=== PATIENT | female | born 1975 | race Caucasian/White ===

== ENCOUNTER 2020-07-20 19:28 | Emergency (ER) | payer MEDICAID ==
[~2020-07-20] VITALS: Ht 175.3 cm; Wt 68.1 kg
[2020-07-20 22:56] VITALS: BP 135/62
--- NOTE | 2020-07-21 21:20 | NUR ---
PER NIKHIL HARRIS, THE RADIOLOGIST REVIEWED THE FILM AND DX A NON-DISPLACED RIB FRACTURE. THIS DOES NOT CHANGE THE TREATMENT PLAN AND THERE IS NO NEED TO CONTACT THE PATIENT.
== END 2020-07-20 22:58 | disposition home or self-care (01) ==
LOC: ER 19:29
DX: R07.81 Pleurodynia (principal); Z59.0 Homelessness; Z88.1 Allergy status to other antibiotic agents; Z88.0 Allergy status to penicillin
CPT/HCPCS: 71101; 99284

== ENCOUNTER 2021-08-10 07:51 | Emergency (ER) | payer MEDICAID ==
[~2021-08-10] VITALS: Ht 175.3 cm; Wt 75.0 kg
[2021-08-10 08:05] VITALS: BP 106/48
[2021-08-10] MEDS ORDERED: ondansetron 4mg rapidly disintigrating tab PO ONE (08:35)
[2021-08-10] MEDS ORDERED: azithromycin 250mg tablet PO ONE (08:35)
== END 2021-08-10 09:29 | disposition home or self-care (01) ==
LOC: ER 07:52
DX: L23.7 Allergic contact dermatitis due to plants, except food (principal); R21 Rash and other nonspecific skin eruption; Z59.00 Homelessness unspecified; Z88.0 Allergy status to penicillin; Z88.1 Allergy status to other antibiotic agents; Z88.8 Allergy status to other drugs, medicaments and biological substances
CPT/HCPCS: 36415; 86592; 99283

== ENCOUNTER 2022-05-14 19:38 | Emergency (ER) | payer MEDICAID ==
[~2022-05-14] VITALS: Ht 175.3 cm; Wt 69.2 kg
[2022-05-14] MEDS ORDERED: sulfamethoxazole/trimethoprim DS (800/160mg) tablet PO ONE (21:35)
[2022-05-14] MEDS ORDERED: diphenhydrAMINE 25mg capsule PO ONE (21:35)
[2022-05-14] MEDS ORDERED: SULF1TAB45 PO (21:44)
[2022-05-14] MEDS ORDERED: DIPH25CA83 PO (21:44)
[2022-05-14 21:48] VITALS: BP 122/77
== END 2022-05-14 21:53 | disposition home or self-care (01) ==
LOC: ER 19:39
DX: L98.8 Other specified disorders of the skin and subcutaneous tissue (principal); G89.29 Other chronic pain; F17.200 Nicotine dependence, unspecified, uncomplicated; Z59.00 Homelessness unspecified; Z88.0 Allergy status to penicillin; Z88.1 Allergy status to other antibiotic agents; Z79.2 Long term (current) use of antibiotics
CPT/HCPCS: 99283; Q0163

== ENCOUNTER 2022-12-29 01:37 | Emergency (ER) | payer MEDICAID ==
[~2022-12-29] VITALS: Ht 170.2 cm; Wt 70.0 kg
[~2022-12-29 01:37] MED LIST: DIPH25CA83 PO
[2022-12-29 01:38] VITALS: BP 173/84; PULSE 80; RESP 18; TEMP 97.6; O2SAT 98
--- NOTE | 2022-12-29 01:46 | NUR ---
she hollared at staff, including "I will not answer your fucking questions twice"
== END 2022-12-29 01:46 | disposition home or self-care (01) ==
LOC: ER 01:37
DX: F15.90 Other stimulant use, unspecified, uncomplicated (principal); R05.9 Cough, unspecified; Z88.0 Allergy status to penicillin; Z88.1 Allergy status to other antibiotic agents; Z79.899 Other long term (current) drug therapy
CPT/HCPCS: 99283

== ENCOUNTER 2024-10-13 22:11 | Emergency (ER) | payer SELFPAY ==
[~2024-10-13] VITALS: Ht 182.9 cm; Wt 57.8 kg
[2024-10-13 22:17] VITALS: BP 119/77; PULSE 115; RESP 15; O2SAT 96
--- NOTE | 2024-10-13 22:53 | Physician Documentation ---
History of Present Illness ~ Chief Complaint: Abscess Stated Complaint: WOUNDS Time Seen by MD: 22:44 Primary Medical Doctor: none HPI 49-year-old female presents to the ED with a complaint of sores on her upper extremities and lower extremities that are itchy and painful. States there worse worse during the day. So she has also gotten vaginal discharge.. Reports being homeless Tetanus Within 5 Years: No Medication Reconciliation Allergies: Coded Allergies: Penicillins (Verified Allergy, Unknown, 10/13/24) >5 years, unknown reaction, unknown treatment cephalexin (Verified Allergy, Unknown, 10/13/24) levofloxacin (Verified Allergy, Unknown, 10/13/24) Scheduled PRN Diphenhydramine HCl (Benadryl), 2 CAP PO Q8H PRN for sinus congestion Past Medical History Past Medical History: Chronic Pain Past Surgical History: noncontributory Drug Use: none Lives In: Homeless Review of Systems All Other Systems at this time: Reviewed and Negative ROS As stated above in the HPI, otherwise all systems are reviewed and negative. Physical Exam Vital Signs: Heart Rate: 115, Respiratory Rate: 15, BP: 119/77, Pulse Oximetry: 96, Weight: 57.800 Physical Exam General: Alert, no apparent distress. HEENT: PERRL, EOMI, no injection, moist mucous membranes. Gu: Deferred Skin: Normal color, sores on both upper extremities and lower extremities with poor healing scabs surrounding erythema Progress Results/Orders Results/Orders Completed Orders - RUSSELL LOPEZ NP Ceftriaxone Im Kit W/Lidocaine (Rocephin (10/13/24 22:55) Doxycycline 100mg Capsule (Vibramycin 10 (10/13/24 22:53) Medications Received in ER Medications (Trade) Dose Ordered Sig/Caridad Route PRN Reason Start Time Stop Time Status Last Admin Dose Admin (Rocephin 1GM IM kit (w/lidocaine diluent)) 1,000 mg ONCE ONCE IM 10/13/24 22:55 10/13/24 22:56 DC 10/13/24 23:11 1,000 MG (VIBRAMYCIN 100mg capsule) 100 mg ONCE STAT PO 10/13/24 22:53 10/13/24 22:55 DC 10/13/24 23:11 100 MG Vital Signs 10/13/24 22:17 Pulse 115 Resp 15 B/P (MAP) 119/77 Pulse Ox 96 Medical Decision Making Findings This unfortunate female presents with a multitude of complaints including parasites which I suspect are a combination of likely staff and picking sores from methamphetamine abuse. Also going to treat her empirically for STI Differential Dx:Considerations: Include: Abscess, Bacteremia, Cellulitis, Erysipelas, Felon, Gas gangrene, Hidrademitis suppurativa, Impetigo, Lymphangitis, Osteromyelitis, Paronychia, Septicemia, Other Departure Disposition: HOME / SELF CARE / HOMELESS Impression: Primary Impression: Abscess Additional Impressions: Cellulitis Sexually transmissible disease Condition: Stable Discharge Instructions: Abscess, Care After Referrals: NO PRIMARY CARE PROVIDER (PCP) Signature Scribe Signature: g Attestation: Scribed for Russell Lopez Cork Compounder by Russell Lopez - BIJAN . 10/13/24 23:48 RUSSELL LOPEZ NP Oct 13, 2024 22:53
[2024-10-13] MEDS: DOXYCYCLINE 100MG CAPSULE PO STA (23:11)
[2024-10-13] MEDS: CefTRIAXone 1000mg IM Kit (w/lidocaine diluent) IM ONE (23:11)
== END 2024-10-13 23:15 | disposition home or self-care (01) ==
LOC: ER 22:12
DX: L02.416 Cutaneous abscess of left lower limb (principal); L02.415 Cutaneous abscess of right lower limb; L02.414 Cutaneous abscess of left upper limb; L02.413 Cutaneous abscess of right upper limb; L03.116 Cellulitis of left lower limb; L03.115 Cellulitis of right lower limb; L03.114 Cellulitis of left upper limb; L03.113 Cellulitis of right upper limb; A64 Unspecified sexually transmitted disease; Z88.0 Allergy status to penicillin; Z88.1 Allergy status to other antibiotic agents; Z88.8 Allergy status to other drugs, medicaments and biological substances
CPT/HCPCS: 96372; 99283; J0696

== ENCOUNTER 2025-04-05 07:22 | Emergency (ER) | payer MEDICAID ==
[~2025-04-05] VITALS: Ht 182.9 cm; Wt 72.0 kg
[2025-04-05 07:26] VITALS: BP 139/66; PULSE 95; TEMP 98.7
[2025-04-05 07:34] VITALS: RESP 16
--- NOTE | 2025-04-05 08:11 | ELECTROCARDIOGRAPH REPORT ---
[facility] Test Date: 2025-04-05 Test Time: 08:08:18 Pat Name: NICHOLE FORD Department: [facility]- Patient ID: [id number] Room: Gender: F Front Desk Team Member: : 1975 Requested By: MILLY DIAZ Order Number: [id number] Reading MD: Measurements Intervals [place] Rate: 80 P: 72 NC: 145 QRS: 57 QRSD: 77 T: 92 QT: 379 QTc: 438 Interpretive Statements Sinus rhythm Right atrial enlargement ST elev, probable normal early repol pattern Please click the below link to view image of tracing.
--- NOTE | 2025-04-05 08:13 | RADIOLOGY REPORT ---
CLINICAL HISTORY: CP TECHNIQUE: Single view of the chest was obtained. COMPARISON: None FINDINGS: The heart size and pulmonary vasculature are normal. The lungs are clear. IMPRESSION: NO ACUTE CARDIOPULMONARY PROCESS.
--- NOTE | 2025-04-05 08:17 | Physician Documentation ---
History of Present Illness Chief Complaint: Abdominal Pain Stated Complaint: ABDOMINAL PAIN Primary Medical Doctor: none Mode of Arrival: EMS HPI 50 y/o F with PMH methamphetamine use, chronic constipation, T2DM, pelvic cancer s/p partial hysterectomy, presenting with 8 days of sharp epigastric pain. Patient is a poor historian. [facility]. Today she vomited up clear fluid and felt nauseous. Worse with food as of today. She also experiences pain with bowel movements. Does not know of any trauma to the area. Endorses productive cough, bilateral shoulder pain. Denies hematemesis, blood in stool, stool changes, changes in urination, chest pain. Location: LLQ, epigastric Last Menstrual Period: Jan 01, 2025 Medication Reconciliation Allergies: Coded Allergies: Penicillins (Verified Allergy, Unknown, 10/13/24) >5 years, unknown reaction, unknown treatment cephalexin (Verified Allergy, Unknown, 10/13/24) levofloxacin (Verified Allergy, Unknown, 10/13/24) Scheduled PRN Diphenhydramine HCl (Benadryl), 2 CAP PO Q8H PRN for sinus congestion Past Medical History Past Medical History: Diabetes, Chronic Pain, *CANCER* Past Surgical History: hysterectomy (partial) Last Menstrual Period: Jan 01, 2025 Drug Use: methamphetamine Lives In: Homeless Review of Systems All Other Systems at this time: Reviewed and Negative Physical Exam Vital Signs: Temperature: 98.7, Source: Oral, Heart Rate: 95, Respiratory Rate: 16, BP: 139/66, Pulse Oximetry: 94, Weight: 72.000 Physical Exam VITALS: Reviewed and as above. GENERAL: Alert, no apparent distress. Speaks quietly. Appears dissheveled. HEENT: Normocephalic, atraumatic, PERRL, EOMI, dry mucosa, no erythema RESPIRATORY: Lungs clear, normal breath sounds, no respiratory distress. CHEST: No accessory muscle use, no retractions CV: Regular rate, rhythm, no edema, no murmur, No: JVD GI: Tenderness to palpation in LLQ with guarding. Bowels sounds present. BACK: No CVA tenderness, or swelling MUSCULOSKELETAL L hand edema, mildly tender to palpation. SKIN: Multiple closed scabs over arms. No active bleeding. NEURO: Oriented x4, No motor or sensory deficit PSYCH: Normal mood and affect, no agitation Progress Results/Orders Results/Orders Orders - MILLY DIAZ MD Urinalysis, Cult If Indicated (04/05/25 07:44) Hcg, Ur Ql (04/05/25 07:44) Cbc/Diff (04/05/25 07:44) Lipase (04/05/25 07:44) CMP (04/05/25 07:44) Chest,Single View (04/05/25 07:44) Monitor (04/05/25 07:44) Saline Lock (04/05/25 07:44) Oxygen (04/05/25 07:44) PBNP (04/05/25 07:44) Hs Troponin I W Calculations (04/05/25 07:44) Completed Orders - MILLY DIAZ MD Chest,Single View (04/05/25 07:44) Electrocardiogram (04/05/25 07:44) Vital Signs 04/05/25 04/05/25 07:26 07:34 Temp 98.7 Pulse 95 Resp 16 16 B/P (MAP) 139/66 Pulse Ox 94 Laboratory Tests Test 04/05/25 08:08 EKG/XRAY/CT/US/VASC/MRI EKG : Additional Comment EKG as interpreted by ED MD: Normal sinus rhythm, at 80 BPM, no ishcemia, normal axis. Chest X-Ray : Interpreted By: both Views: 1 VIEW Indication: pain Lungs: normal Mediastinum: normal Ribs/Bones: normal Abdomen: normal Impression: no acute disease Additional Comments CLINICAL HISTORY: CP TECHNIQUE: Single view of the chest was obtained. COMPARISON: None FINDINGS: The heart size and pulmonary vasculature are normal. The lungs are clear. IMPRESSION: NO ACUTE CARDIOPULMONARY PROCESS. Departure Disposition: LEFT AGAINST MEDICAL ADVICE Referrals: NO PRIMARY CARE PROVIDER (PCP) MILLY DIAZ MD Apr 05, 2025 08:17
[2025-04-05 08:19] LABS: MEAN PLATELET VOLUME 8.4 FL (7.4-10.4); RED CELL DISTRIBUTION WIDTH 14.1 % (11.5-14.5)
[2025-04-05 08:37] LABS: CREATININE 1.03 MG/DL (0.40-0.90); TOTAL CARBON DIOXIDE 31.9 MMOL/L (24-32); eCRCL 74 ML/MIN; eGFR 57 ML/MIN
[2025-04-05 08:43] LABS: PRO BRAIN NATRIURETIC PEPTIDE 122 PG/ML (0-125)
[2025-04-05 09:04] LABS: URINE HCG NEGATIVE (NEG)
[2025-04-05 09:08] LABS: LEUKOCYTE ESTERASE ,URINE NEGATIVE (Neg); NITRITES, URINE NEGATIVE (Neg); OCCULT BLOOD,URINE NEGATIVE (Neg)
[2025-04-05 09:22] LABS: UA COLLECTION TYPE CLN CATCH MIDSTREAM
[2025-04-05] MEDS: normal saline 1000ml 1,000 ML IV ONE (09:24)
[2025-04-05 09:26] VITALS: O2SAT 96
[2025-04-05 09:26] LABS: MUCUS STRANDS FEW /LPF (Neg); SQUAMOUS EPITHELIAL CELL,UR FEW /LPF (FEW)
[2025-04-05] MEDS ORDERED: iohexol 300mg/ml 100ml inj. ONE (10:13)
[2025-04-06] MEDS ORDERED: GLYB2.5T4 PO (19:15)
[2025-04-06] MEDS ORDERED: AZIT-164 PO (19:15)
[2025-04-06] MEDS ORDERED: BENZ-38 PO (19:15)
== END 2025-04-05 10:29 | disposition left against medical advice (07) ==
LOC: ER 07:23
DX: R10.13 Epigastric pain (principal); E11.9 Type 2 diabetes mellitus without complications; G89.29 Other chronic pain; F15.90 Other stimulant use, unspecified, uncomplicated; R06.02 Shortness of breath; Z88.0 Allergy status to penicillin; Z88.1 Allergy status to other antibiotic agents; Z90.711 Acquired absence of uterus with remaining cervical stump; Z79.899 Other long term (current) drug therapy; Z59.00 Homelessness unspecified
CPT/HCPCS: 36415; 71045; 80053; 81001; 81025; 83690; 83880; 84484; 85025; 93005; 96360; 99285; J7030; Q9967